=== PATIENT | female | born 1995 | race Caucasian/White ===

== ENCOUNTER 2019-10-20 03:17 | Emergency (ER) | payer BC, OTHER, SELFPAY ==
[2019-10-20 03:38] VITALS: BP 126/93; PULSE 97; RESP 18; TEMP 37.6; O2SAT 98
[2019-10-20 03:48] VITALS: BP 123/75; PULSE 83; RESP 17; TEMP 37.3; O2SAT 95
[2019-10-20 05:21] VITALS: BP 123/59; PULSE 82; RESP 17; O2SAT 97
--- NOTE | 2019-10-20 05:37 | ED.URI ---
HPI - URI/Sore Throat General Chief Complaint: Upper Respiratory Infection Stated Complaint: s/t Time Seen by Provider: 10/20/19 03:57 Source: patient Mode of arrival: ambulatory Limitations: no limitations History of Present Illness HPI Narrative: Patient is a 24-year-old female who presents to the emergency department with complaint of sore throat. Patient reports onset of symptoms 2 weeks ago. Patient states she has been seen multiple emergency departments and not been given any medications to help her symptoms except for ibuprofen. Patient reports being positive for influenza A in another emergency department. Patient's is also ill with symptoms. Patient reports cough productive of yellow phlegm, headache, vomiting, and diarrhea. She is denying any fever, chills, or myalgias at this time. MD elicited complaint: sore throat Onset (ago): week(s) (2) Consistency: constant Exacerbating factors: swallowing Relieving factors: nothing Context: sick contacts () Associated symptoms: headache, cough, nausea, vomiting and diarrhea Treatments prior to arrival: ibuprofen Related Data Allergies Allergy/AdvReac Type Severity Reaction Status Date / Time grapefruit Allergy Severe Anaphylactic Verified 07/02/18 15:24 Shock BEE STINGS Allergy Severe SWELLING,SHORTNESS Uncoded 07/02/18 15:24 OF BREATH Review of Systems Review of Systems: All systems reviewed & are unremarkable except as noted in HPI and below Constitutional: Constitutional: Denies chills and Denies fever(s) ENT: Reports sore throat Respiratory: Respiratory: Reports change in phlegm color (yellow) and Reports cough Gastrointestinal: Gastrointestinal: Reports diarrhea, Reports nausea and Reports vomiting PMFSH Past Medical History Medical History (Updated 10/20/19 @ 05:46 by Caro Denise MD) No significant past medical history Surgical History Surgical History (Updated 10/20/19 @ 05:42 by Caro Denise MD) History of section Social History Social History (Updated 10/20/19 @ 05:43 by Caro Denise MD) Smoking status: Current every day smoker Comments History of spine surgery for scoliosis Exam Const: General: cooperative, no acute distress and alert Nutritional Appearance: well nourished Orientation/consciousness: patient oriented x3 Limitations: no limitations HENMT: Mouth: Yes lip normal and Yes moist mucous membranes Throat: posterior oropharynx abnormal erythema Resp: Effort & Inspection: normal respiratory effort Auscultation: clear to auscultation bilaterally Cardio: Rate: regular rate Rhythm: regular rhythm GI: GI Palp: Yes Soft to palpation and No Tenderness to palpation present (GI) Auscultation: normal bowel sounds Skin: General skin exam: normal color Neuro: General: patient oriented x3 Cognition (Neuro): normal cognition Speech: normal speech Extrem: General: normal to inspection, full ROM and no clubbing, cyanosis or edema Psych: Mental Status: mental status grossly normal Affect: normal affect Attitude: cooperative Course Course Emergency Course: Patient negative for strep and influenza. Discussed symptomatic management of viral syndrome. Vital Signs Vital signs: Vital Signs Temperature 99.7 F H 10/20/19 03:38 Pulse Rate 97 10/20/19 03:38 Respiratory Rate 18 10/20/19 03:38 Blood Pressure 126/93 H 10/20/19 03:38 Pulse Oximetry 98 10/20/19 03:38 Temperature 99.1 F 10/20/19 03:48 Pulse Rate 82 10/20/19 05:21 Respiratory Rate 17 10/20/19 05:21 Blood Pressure 123/59 L 10/20/19 05:21 Pulse Oximetry 97 10/20/19 05:21 MDM - URI/Sore Throat Lab Data Attestation: I reviewed the patient's lab results. Labs: Influenza A Screen Negative Reference Range: Negative Influenza B Screen Negative Reference Range: Negative Strep Screen Presumptive Negative *(Reference Range:
[2019-10-20 06:10] VITALS: BP 113/68; PULSE 87; RESP 16; TEMP 37.1; O2SAT 96
== END 2019-10-20 06:12 | disposition home or self-care (01) ==
PROVIDERS: Emergency Provider Emergency Medicine; PCP Internal Medicine Infectious Disease
DX: J06.9 Acute upper respiratory infection, unspecified (principal); F17.200 Nicotine dependence, unspecified, uncomplicated
CPT/HCPCS: 87081; 87804; 87880; 99283

== ENCOUNTER 2020-03-09 15:42 | Emergency (ER) | payer BC, OTHER, SELFPAY ==
[2020-03-09 15:49] VITALS: BP 98/66; PULSE 85; RESP 20; TEMP 36.7; O2SAT 97
--- NOTE | 2020-03-09 16:53 | ED.FEMALEGU ---
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 Reports dysuria. Reports she was seen at an urgent care for this. Reports she was told to swab her vagina with provided swab. Reports she accidentally used a dirty swab. Patient would like to be tested for STDs. Denies fever, abdominal pain, vomiting, or hematuria. <AJAY Tejada Last Filed: 03/09/20 18:07> Related Data Home medications: Home Medications Medication Instructions Recorded Confirmed Strattera 03/09/20 aripiprazole mg 03/09/20 clonidine HCl 03/09/20 <AJAY Tejada Last Filed: 03/09/20 18:07> Allergies/Adverse reactions: Allergies Allergy/AdvReac Type Severity Reaction Status Date / Time grapefruit Allergy Severe Anaphylactic Verified 03/09/20 17:18 Shock BEE STINGS Allergy Severe SWELLING,SHORTNESS Uncoded 03/09/20 17:18 OF BREATH <AJAY Tejada Last Filed: 03/09/20 18:07> Review of Systems Review of Systems: Narrative: CONSTITUTIONAL: Denies fever GASTROINTESTINAL: Denies abdominal pain, nausea, vomiting GENITOURINARY:Reports dysuria. Denies hematuria. SKIN: Denies rash. Reports itching. <AJAY Tejada Last Filed: 03/09/20 18:07> All systems reviewed & are unremarkable except as noted in HPI and below <Erika Loomis PA-C - Last Filed: 03/09/20 18:07> [facility] Past Medical History Medical History: Medical History (Updated 03/10/20 @ 00:00 by Carol Ruff) History of bipolar disorder <Erika Loomis PA-C - Last Filed: 03/09/20 18:07> Surgical History Surgical History: Surgical History (Updated 03/09/20 @ 16:56 by Erika Loomis PA-C) History of section History of tubal ligation <Erika Loomis PA-C - Last Filed: 03/09/20 18:07> Social History Social History: Social History (Updated 10/20/19 @ 05:43 by Caro Denise MD) Smoking status: Current every day smoker <Erika Loomis PA-C - Last Filed: 03/09/20 18:07> Exam Narrative: Exam Narrative: GENERAL: Well-appearing, well-nourished, and in no acute distress. HEAD: Normocephalic, atraumatic. EYES: EOMI. CHEST: Clear to auscultation. No respiratory distress. No wheezes rales or rhonchi HEART: Regular rate and rhythm. No murmur heard. Normal peripheral pulses. ABDOMEN: Soft, nontender, nondistended, normal active bowel sounds. No CVA tenderness EXTREMITIES: Normal range of motion. No edema. SKIN: Warm, dry, no rash. NEURO: No focal deficits. Alert and oriented x3. PSYCH: Normal mood and affect PELVIC: Normal external genitalia. Normal appearing cervix, no CMT <Erika Loomis PA-C - Last Filed: 03/09/20 18:07> Course Vital Signs Vital signs: Vital Signs Temperature 36.7 C 03/09/20 15:49 Pulse Rate 85 03/09/20 15:49 Respiratory Rate 20 03/09/20 15:49 Blood Pressure 98/66 L 03/09/20 15:49 Pulse Oximetry 97 03/09/20 15:49 Temperature 36.7 C 03/09/20 15:49 Pulse Rate 85 03/09/20 15:49 Respiratory Rate 20 03/09/20 15:49 Blood Pressure 98/66 L 03/09/20 15:49 Pulse Oximetry 97 03/09/20 15:49 <Erika Loomis PA-C - Last Filed: 03/09/20 18:07> Vital Signs Temperature 36.7 C 03/09/20 15:49 Pulse Rate 85 03/09/20 15:49 Respiratory Rate 20 03/09/20 15
[2020-03-09 17:29] LABS: Add Urine Microscopic? YES; Appearance Urine Clear (Clear); Bilirubin Urine Negative (Negative); Blood Urine Negative (Negative); Color Urine Yellow (Yellow); Glucose Urine UA Negative (Negative); Ketones Urine Trace mg/dL (Negative); Leukocyte Esterase Ur 2+ LEU/UL (Negative); Mucus Urine Heavy /lpf; Nitrate Urine Negative (Negative); Protein Urine 1+ mg/dL (Negative); Specific Grav Ur 1.028 (1.001-1.035); Squamous Epithelial Cell Urine Many /hpf (Few)
[2020-03-09 18:18] LABS: HIV 1/2 Ab P24 Ag Result Negative (Negative)
[2020-03-09] MEDS: metroNIDAZOLE 250 MG TABLET 2000 MG PO (18:18)
== END 2020-03-09 18:19 | disposition home or self-care (01) ==
PROVIDERS: Physician Assistant; Emergency Provider Emergency Medicine; PCP Internal Medicine Infectious Disease
DX: N89.8 Other specified noninflammatory disorders of vagina (principal); F31.9 Bipolar disorder, unspecified; F17.200 Nicotine dependence, unspecified, uncomplicated
CPT/HCPCS: 36415; 81001; 81025; 86703; 87070; 87491; 87591; 87808; 99284; A9270; G0432